=== PATIENT | female | born 1970 ===

== ENCOUNTER 2024-11-16 18:03 | Inpatient (IN) | payer MEDICAID, SELFPAY ==
--- NOTE | 2024-11-16 18:18 | PC.NURSE ---
Patient was admitted to M3 from [facility] at 18:33 on a 12b. Upon admission, patient's vitals were completed (97%, 87HR, 169/99, R17, 98.2) and patient's skin check was completed and unremarkable. Patient was oriented to the unit, given a bag of toiletries and admission assessment has been passed on to next shift.
[2024-11-16 18:54] VITALS: BMI 34.9
[2024-11-16 18:55] VITALS: BP 169/99; PULSE 87; RESP 17; TEMP 36.8; O2SAT 97
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
[2024-11-17 08:19] VITALS: BP 121/69; PULSE 75; RESP 16; TEMP 36.5; O2SAT 95
[2024-11-17 08:37] LABS: Estimated Average Glucose 100 mg/dL; Hemoglobin A1C 107.4116 umol/L; Hemoglobin A1c % 5.1 % (<6.0); Total Hemoglobin (HGBA1C) 3342.6556 umol/L
[2024-11-17 08:51] LABS: Cholesterol 163 mg/dL (<200); HDL Cholesterol 61 mg/dL (>40); LDL Cholesterol Calculated 91 mg/dL (<100); Magnesium 2.1 mg/dL (1.6-2.6); Triglycerides 58 mg/dL (<150)
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
[2024-11-17 09:08] LABS: Free T4 (Free Thyroxine) 1.15 ng/dL (0.71-1.85); Thyroid Stimulating Hormone 0.81 uIU/mL (0.32-4.0)
[2024-11-17 09:23] LABS: Folate 8.1 ng/mL (> or = 4.0); Vitamin B12 475 pg/mL (200-900)
--- NOTE | 2024-11-17 10:30 | HO.PM.IMCN ---
History of Present Illness Data of Consult Service Date: 11/17/24 Primary Care Provider: Nonstaff Physician SHAYNA Reason for consult: Medical consult 54-year-old female with past medical history of hypertension and AFib and anemia. She is admitted here from [facility] to inpatient psychiatric treatment for delusions paranoid thoughts and anxiety. She reports to me that she is unhoused unclear if this is accurate. Notably she has had bilateral leg swelling and pain. Her workup revealed a normal creatinine, normal troponins, EKG with normal sinus rhythm, a negative urinalysis, a negative chest x-ray. She was ruled out for ACS and renal failure. Her BNP was 154, no pulmonary edema on chest x-ray. She reports a history of AFib and she was on medications for approximately 1 month and this resolved. She reports that she only takes diltiazem for her blood pressure. Her blood pressure is stable today. Was elevated on admission. She walks with a limp due to past surgeries on her left hip starting as a child. On exam she has bilateral swelling in her legs 1 to 2+. She reports that they are significantly improved. She was doing a lot of walking. She has a history of gastric bypass surgery. On exam she became tearful. She denies any chest pain, shortness of breath, dizziness, lightheadedness or any other concerning symptoms. She denies any medical concerns Review of Systems Review of Systems: Denies any shortness of breath, chest pain, dizziness, lightheadedness, abdominal pain or discomfort, nausea vomiting or diarrhea PMFSH Social History Household Members: None Housing: Homeless Do you presently have visiting nurse or other home services: No Patient Tobacco Use Status: Former Tobacco user Tobacco use type: Cigarette Smoked in Last 30 Days: No e-Cigarette/Vaping Use: Never Used Patient Interested in Nicotine Replacement: Yes Patient Given Instructions on How to Stop Smoking: No Second Hand Smoke Exposure: No Currently Displaying Signs/Symptoms of Drug Intoxication Withdrawal: No Do you feel safe in your current relationship?: No Current Relationship Advance Directives: No Advance Directives Information Provided: No Do you have thoughts of harming others: None Do you have a plan to hurt others: No Plan Recently lost weight without trying: Unsure Eating poorly because of decreased appetite: No Nutrition Risks: No Nutritional Risk Patient : No : No Poor oral hygiene: No service: No Sexual orientation: Straight/Heterosexual Meds Allergies Allergy/AdvReac Type Severity Reaction Status Date / Time NSAIDS (Non-Steroidal Allergy Unknown Unknown Verified 11/16/24 17:05 Anti-Inflamma oxycodone Allergy Unknown Unknown Verified 11/16/24 17:05 Active Medications: Current Medications Acetaminophen (Acetaminophen 325 Mg Tablet) 650 mg PO Q6H PRN PRN Reason: Headache/Pain, Scale 1-10 Al Hydroxide/Mg Hydroxide (Magnesium Hydrox/Alum Hydrox 30 Ml Oral.Susp) 30 ml PO Q6H PRN PRN Reason: Heartburn/Nausea Hydroxyzine HCl (Hydroxyzine Hcl 25 Mg Tablet) 25 mg PO Q6H PRN PRN Reason: mild anxiety Magnesium Hydroxide (Milk Of Magnesia 30 Ml Oral.Susp) 30 ml PO DAILY PRN PRN Reason: Constipation Nicotine Polacrilex (Nicotine Polacrilex 2 Mg Gum) 4 mg BUCCAL Q2H PRN PRN Reason: Nicotine Cravings Trazodone HCl (Trazodone Hcl 50 Mg Tablet) 50 mg PO BEDTIME MRX1 PRN PRN Reason: Insomnia Home Medications ?Medication ?Instructions ?Recorded ?Confirmed ?Last Taken ?Type diltiazem HCl 240 mg 240 mg PO DAILY 11/17/24 11/17/24 Unknown History capsule,extended release 24 hr metoprolol succinate 25 mg 25 mg PO DAILY 11/17/24 11/17/24 Unknown History tablet,extended release 24 hr (Toprol XL) quetiapine 25 mg tablet 25 mg PO BEDTIME 11/17/24 11/17/24 Unknown History Physical Exam Vital Signs and Narrative: Vital Signs: Last Vital Signs Temp 97.7 F 11/17/24 08:19 Pulse 75 11/17/24 08:19 Resp 16 11/17/24 08:19 BP 121/69 11/17/24 08:19 Pulse Ox 95 11/17/24 08:19 O2 Del Method Room Air 11/17/24 08:19 BMI result Body Mass Index 34.9 Alert and oriented X3, able to give good history. Neuro: CN II-X11 intact, no deficits, visual acuity intact EYES: PERRLA, EOM intact ENT: hearing intact, uvula midline, lips moist Cardiac: S1 S2 RRR, no murmur, no JVD, no edema in Lower ext Pulmonary: lungs clear to auscultation, No increased WOB. Abdominal: BS active in all 4 quadrants, no guarding MSK: Strength 5/5 upper and lower extremities : Deferred Extremities: 1-2+ edema in lower extremities, PT and DP pulses palpable +2 Psych: mood stable, judgment and insight good, weepy Skin: Warm and dry, Intact Results Labs Labs: Laboratory Results - last 24 hr 11/17/24 07:54 Estimat Average Glucose 100 Hemoglobin A1c % 5.1 Magnesium 2.1 Triglycerides 58 Cholesterol 163 LDL Cholesterol, Calc 91 HDL Cholesterol 61 Vitamin B12 475 Folate 8.1 TSH 0.81 Free T4 1.15 Assessment and Plan (1) HTN (hypertension): Status: Acute Plan Delusion, paranoid thoughts/anxiety Treatment per psychiatric team Hypertension Continue diltiazem 240 daily. History of AFib Previously received Toprol- No longer taking This has subsequently been DC. EKG demonstrated sinus rhythm ACS ruled out, BNP within normal limits. Edema Encouraged leg elevation We will treat with 3 days of Lasix 20 mg ALLISON stockings We will check BMP on Wednesday. Thank you for allowing me to participate in the care of this patient. Will follow as needed. Please reconsult of any acute complaints or issues arise
[2024-11-17] MEDS: Acetaminophen 325 MG TABLET 650 MG PO ×2 (11:04→21:19)
[2024-11-17 13:23] VITALS: BP 128/73
[2024-11-17] MEDS: Furosemide 20 MG TABLET PO (13:23)
--- NOTE | 2024-11-17 15:03 | MHC.CLN ---
NUTRITION CONSULT CONSULT FOR S/P GASTRIC BYPASS SURGERY. VISITED WITH PATIENT ON THE UNIT. REPORTED THAT HAD GASTRIC BYPASS SURGERY IN 2013. NO SPECIAL DIET OR SUPPLEMENTS REQUESTED. ABLE TO MAKE OWN CHOICES FROM HOUSE MENU. NO ADDITIONAL NUTRITION INTERVENTIONS AT THIS TIME.
[2024-11-17 19:15] VITALS: BP 139/99; PULSE 85; RESP 16; TEMP 36.7; O2SAT 98
[2024-11-18 08:00] VITALS: BP 155/86; PULSE 72; RESP 16; TEMP 36.4; O2SAT 98
[2024-11-18] MEDS: dilTIAZem HCL CD 240 MG CAP.ER.DEG PO (08:43)
[2024-11-18] MEDS: Furosemide 20 MG TABLET PO (08:43)
[2024-11-18] MEDS: Acetaminophen 325 MG TABLET 650 MG PO ×2 (09:39→21:30)
--- NOTE | 2024-11-18 14:43 | P.PNPSI_ITS ---
Subjective Subjective Date of Service: 11/18/24 Reason For Visit: Delusional disorder Interim History: Social with peers. attending groups. Showered. Pt reports feeling fine today; denies any issues at this time. She reports sleeping well last night. denies SI/HI/VH/AH. Medication Compliance: Yes Side effects from medications: No Attending Groups: Yes Mental Status Exam Mental Status Exam Patient Appearance: Well Grooomed Patient Orientation: Person, Place, Time and Situation Level of Consciousness: Awake and Alert Patient Behavior: Appropriate and Cooperative Mood Description: Calm Affect Description: Calm Ability to Follow Directions: Good Speech Pattern: Clear and Appropriate Memory Description: Intact Hallucinations: None Delusions: Not Present Thought Process: Intact Thought Content: positive for Intact Diagnostics Vital Signs (24Hr): Vital Signs - 24 hr 11/17/24 19:15 11/18/24 08:00 Temperature 98.0 F 97.6 F Pulse Rate 85 72 Respiratory Rate 16 16 Blood Pressure 139/99 H 155/86 H Pulse Oximetry 98 98 Oxygen Delivery Method Room Air Room Air BMI result Body Mass Index 34.9 Labs Labs: Laboratory Results - last 48 hr 11/17/24 07:54 Estimat Average Glucose 100 Hemoglobin A1c % 5.1 Magnesium 2.1 Triglycerides 58 Cholesterol 163 LDL Cholesterol, Calc 91 HDL Cholesterol 61 Vitamin B12 475 Folate 8.1 TSH 0.81 Free T4 1.15 Medications Medications Current Medications Acetaminophen (Acetaminophen 325 Mg Tablet) 650 mg PO Q6H PRN PRN Reason: Headache/Pain, Scale 1-10 Last Admin: 11/18/24 09:39 Dose: 650 mg Al Hydroxide/Mg Hydroxide (Magnesium Hydrox/Alum Hydrox 30 Ml Oral.Susp) 30 ml PO Q6H PRN PRN Reason: Heartburn/Nausea Diltiazem HCl (Diltiazem Hcl Cd 240 Mg Cap.Er.Deg) 240 mg PO DAILY CHERYL; P rotocol Last Admin: 11/18/24 08:43 Dose: 240 mg Furosemide (Furosemide 20 Mg Tablet) 20 mg PO DAILY CHERYL; Protocol Stop: 11/20/24 12:14 Last Admin: 11/18/24 08:43 Dose: 20 mg Hydroxyzine HCl (Hydroxyzine Hcl 25 Mg Tablet) 25 mg PO Q6H PRN PRN Reason: mild anxiety Magnesium Hydroxide (Milk Of Magnesia 30 Ml Oral.Susp) 30 ml PO DAILY PRN PRN Reason: Constipation Multi-Ingred Cream/Lotion/Oil/Oint (Mineral Oil/Petrolatum,White 106 Gm Tube) 1 appl TOPICAL BID PRN; Protocol PRN Reason: Dry Skin Nicotine Polacrilex (Nicotine Polacrilex 2 Mg Gum) 4 mg BUCCAL Q2H PRN PRN Reason: Nicotine Cravings Olanzapine (Olanzapine 5 Mg Tablet) 5 mg PO BEDTIME CHERYL Last Admin: 11/17/24 21:21 Dose: Not Given Trazodone HCl (Trazodone Hcl 50 Mg Tablet) 50 mg PO BEDTIME MRX1 PRN PRN Reason: Insomnia Allergies Allergies Allergy/AdvReac Type Severity Reaction Status Date / Time NSAIDS (Non-Steroidal Allergy Unknown Unknown Verified 11/16/24 17:05 Anti-Inflamma oxycodone Allergy Unknown Unknown Verified 11/16/24 17:05 Assessment & Plan Assessment & Plan (1) HTN (hypertension): Status: Acute Code(s): I10 - Essential (primary) hypertension (2) History of gastric bypass: Status: Acute Code(s): Z98.84 - Bariatric surgery status (3) Psychotic disorder: Status: Acute Code(s): F29 - Unspecified psychosis not due to a substance or known physiological condition Plan offer anti-psychotic medication, which pt states she will refuse. otherwise continue home medications for HTN. nutrition consult for gastric bypass Hx. 12b up next . 11/18: Social with peers. attending groups. Showered. Pt reports feeling fine today; denies any issues at this time. She reports sleeping well last night. denies SI/HI/VH/AH. Continue current tx plan. Patient educated on: diagnosis and medication risk/benefits Reason for continued inpatient stay Substantial Risk for: med/psych decompensation Time Spent With Patient Time: Total time managing care of this patient today _10___ minutes.
[2024-11-18 19:05] VITALS: BP 163/88; PULSE 73; RESP 16; TEMP 36.6; O2SAT 100
[2024-11-18] MEDS: Mineral Oil/Petrolatum,White 106 GM Tube 1 APPL TOPICAL (21:30)
[2024-11-19 07:32] VITALS: BP 145/93; PULSE 66; RESP 16; TEMP 36.4; O2SAT 100
[2024-11-19] MEDS: Acetaminophen 325 MG TABLET 650 MG PO (07:56)
[2024-11-19] MEDS: Mineral Oil/Petrolatum,White 106 GM Tube 1 APPL TOPICAL ×2 (07:57→20:51)
[2024-11-19] MEDS: dilTIAZem HCL CD 240 MG CAP.ER.DEG PO (07:58)
[2024-11-19] MEDS: Furosemide 20 MG TABLET PO (07:58)
--- NOTE | 2024-11-19 09:20 | HO.PSYCHPN ---
Subjective Subjective Date of Service: 11/19/24 Reason For Visit: Delusional disorder Interim History: Social with peers. attending groups. guarded. Pt reports feeling good today; pt stated, I feel like the swelling in my legs has decreased . She reports sleeping well last night. denies SI/HI/VH/AH. Medication Compliance: Yes Side effects from medications: No Attending Groups: Yes Mental Status Exam Mental Status Exam Patient Appearance: Well Grooomed Patient Orientation: Person, Place, Time and Situation Level of Consciousness: Awake and Alert Patient Behavior: Appropriate, Guarded and Cooperative Mood Description: Calm Affect Description: Calm Ability to Follow Directions: Good Speech Pattern: Clear and Appropriate Memory Description: Intact Hallucinations: None Delusions: Not Present Thought Process: Intact Thought Content: positive for Intact Diagnostics Vital Signs (24Hr): Vital Signs - 24 hr 11/18/24 19:05 11/19/24 07:32 Temperature 97.8 F 97.5 F Pulse Rate 73 66 Respiratory Rate 16 16 Blood Pressure 163/88 H 145/93 H Pulse Oximetry 100 100 Oxygen Delivery Method Room Air Room Air BMI result Body Mass Index 34.9 Labs Labs: Laboratory Results - last 48 hr 11/17/24 07:54 Vitamin B12 475 Folate 8.1 Medications Medications Current Medications Acetaminophen (Acetaminophen 325 Mg Tablet) 650 mg PO Q6H PRN PRN Reason: Headache/Pain, Scale 1-10 Last Admin: 11/19/24 07:56 Dose: 650 mg Al Hydroxide/Mg Hydroxide (Magnesium Hydrox/Alum Hydrox 30 Ml Oral.Susp) 30 ml PO Q6H PRN PRN Reason: Heartburn/Nausea Diltiazem HCl (Diltiazem Hcl Cd 240 Mg Cap.Er.Deg) 240 mg PO DAILY CHERYL; Protocol Last Admin: 11/19/24 07:58 Dose: 240 mg Furosemide (Furosemide 20 Mg Tablet) 20 mg PO DAILY CHERYL; Protocol Stop: 11/20/24 12:14 Last Admin: 11/19/24 07:58 Dose: 20 mg Hydroxyzine HCl (Hydroxyzine Hcl 25 Mg Tablet) 25 mg PO Q6H PRN PRN Reason: mild anxiety Magnesium Hydroxide (Milk Of Magnesia 30 Ml Oral.Susp) 30 ml PO DAILY PRN PRN Reason: Constipation Multi-Ingred Cream/Lotion/Oil/Oint (Mineral Oil/Petrolatum,White 106 Gm Tube) 1 appl TOPICAL BID PRN; Protocol PRN Reason: Dry Skin Last Admin: 11/19/24 07:57 Dose: 1 appl Nicotine Polacrilex (Nicotine Polacrilex 2 Mg Gum) 4 mg BUCCAL Q2H PRN PRN Reason: Nicotine Cravings Olanzapine (Olanzapine 5 Mg Tablet) 5 mg PO BEDTIME CHERYL Last Admin: 11/18/24 21:14 Dose: Not Given Trazodone HCl (Trazodone Hcl 50 Mg Tablet) 50 mg PO BEDTIME MRX1 PRN PRN Reason: Insomnia Allergies Allergies Allergy/AdvReac Type Severity Reaction Status Date / Time NSAIDS (Non-Steroidal Allergy Unknown Unknown Verified 11/16/24 17:05 Anti-Inflamma oxycodone Allergy Unknown Unknown Verified 11/16/24 17:05 Assessment & Plan Assessment & Plan (1) HTN (hypertension): Status: Acute Code(s): I10 - Essential (primary) hypertension (2) History of gastric bypass: Status: Acute Code(s): Z98.84 - Bariatric surgery status (3) Psychotic disorder: Status: Acute Code(s): F29 - Unspecified psychosis not due to a substance or known physiological condition Plan offer anti-psychotic medication, which pt states she will refuse. otherwise continue home medications for HTN. nutrition consult for gastric bypass Hx. 12b up next . 11/18: Social with peers. attending groups. Showered. Pt reports feeling fine today; denies any issues at this time. She reports sleeping well last night. denies SI/HI/VH/AH. Continue current tx plan. 11/19: continue current tx plan. Patient educated on: diagnosis, medication risk/benefits and therapeutic strategies Reason for continued inpatient stay Substantial Risk for: med/psych decompensation Time Spent With Patient Time: Total time managing care of this patient today _20___ minutes.
[2024-11-19 20:00] VITALS: BP 162/90; PULSE 77; RESP 16; TEMP 36.4; O2SAT 100
[2024-11-19] MEDS: Hydrocortisone 1 % Cream 28.35 GM TUBE 1 APPL TOPICAL (20:51)
[2024-11-20] MEDS: Hydrocortisone 1 % Cream 28.35 GM TUBE 1 APPL TOPICAL (05:31)
[2024-11-20 08:00] VITALS: BP 173/93; PULSE 66; RESP 16; TEMP 36.3; O2SAT 100
[2024-11-20] MEDS: dilTIAZem HCL CD 240 MG CAP.ER.DEG PO (08:39)
[2024-11-20] MEDS: Furosemide 20 MG TABLET PO (08:40)
--- NOTE | 2024-11-20 08:48 | HO.PSYCHPN ---
Subjective Subjective Date of Service: 11/20/24 Reason For Visit: Delusional disorder Interim History: Pt reports feeling good today; observed sitting in sensory room, listening to music. She reports sleeping well. denies SI/HI/VH/AH. continue current tx plan. Medication Compliance: Yes Side effects from medications: No Attending Groups: Yes Mental Status Exam Mental Status Exam Patient Appearance: Well Grooomed Patient Orientation: Person, Place, Time and Situation Level of Consciousness: Awake and Alert Patient Behavior: Appropriate, Guarded and Cooperative Mood Description: Calm Affect Description: Calm Ability to Follow Directions: Good Speech Pattern: Clear and Appropriate Memory Description: Intact Hallucinations: None Delusions: Not Present Thought Process: Intact Thought Content: positive for Intact Diagnostics Vital Signs (24Hr): Vital Signs - 24 hr 11/19/24 20:00 11/20/24 08:00 Temperature 97.5 F 97.3 F Pulse Rate 77 66 Respiratory Rate 16 16 Blood Pressure 162/90 H 173/93 H Pulse Oximetry 100 100 Oxygen Delivery Method Room Air Room Air BMI result Body Mass Index 34.9 Labs 11/20/24 08:02 Medications Medications Current Medications Acetaminophen (Acetaminophen 325 Mg Tablet) 650 mg PO Q6H PRN PRN Reason: Headache/Pain, Scale 1-10 Last Admin: 11/19/24 07:56 Dose: 650 mg Al Hydroxide/Mg Hydroxide (Magnesium Hydrox/Alum Hydrox 30 Ml Oral.Susp) 30 ml PO Q6H PRN PRN Reason: Heartburn/Nausea Diltiazem HCl (Diltiazem Hcl Cd 240 Mg Cap.Er.Deg) 240 mg PO DAILY CHERYL; Protocol Last Admin: 11/20/24 08:39 Dose: 240 mg Furosemide (Furosemide 20 Mg Tablet) 20 mg PO DAILY CHERYL; Protocol Stop: 11/20/24 12:14 Last Admin: 11/20/24 08:40 Dose: 20 mg Hydrocortisone (Hydrocortisone 1 % Cream 28.35 Gm Tube) 1 appl TOPICAL BID PRN; Protocol PRN Reason: affected area Last Admin: 11/20/24 05:31 Dose: 1 appl Hydroxyzine HCl (Hydroxyzine Hcl 25 Mg Tablet) 25 mg PO Q6H PRN PRN Reason: mild anxiety Magnesium Hydroxide (Milk Of Magnesia 30 Ml Oral.Susp) 30 ml PO DAILY PRN PRN Reason: Constipation Multi-Ingred Cream/Lotion/Oil/Oint (Mineral Oil/Petrolatum,White 106 Gm Tube) 1 appl TOPICAL BID PRN; Protocol PRN Reason: Dry Skin Last Admin: 11/19/24 20:51 Dose: 1 appl Nicotine Polacrilex (Nicotine Polacrilex 2 Mg Gum) 4 mg BUCCAL Q2H PRN PRN Reason: Nicotine Cravings Olanzapine (Olanzapine 5 Mg Tablet) 5 mg PO BEDTIME CHERYL Last Admin: 11/19/24 21:12 Dose: Not Given Trazodone HCl (Trazodone Hcl 50 Mg Tablet) 50 mg PO BEDTIME MRX1 PRN PRN Reason: Insomnia Allergies Allergies Allergy/AdvReac Type Severity Reaction Status Date / Time NSAIDS (Non-Steroidal Allergy Unknown Unknown Verified 11/16/24 17:05 Anti-Inflamma oxycodone Allergy Unknown Unknown Verified 11/16/24 17:05 Assessment & Plan Assessment & Plan (1) HTN (hypertension): Status: Acute Code(s): I10 - Essential (primary) hypertension (2) History of gastric bypass: Status: Acute Code(s): Z98.84 - Bariatric surgery status (3) Psychotic disorder: Status: Acute Code(s): F29 - Unspecified psychosis not due to a substance or known physiological condition Plan offer anti-psychotic medication, which pt states she will refuse. otherwise continue home medications for HTN. nutrition consult for gastric bypass Hx. 12b up next . 11/18: Social with peers. attending groups. Showered. Pt reports feeling fine today; denies any issues at this time. She reports sleeping well last night. denies SI/HI/VH/AH. Continue current tx plan. 11/19: continue current tx plan. 11/20: continue tx plan. Patient educated on: diagnosis and medication risk/benefits Reason for continued inpatient stay Substantial Risk for: med/psych decompensation Time Spent With Patient Time: Total time managing care of this patient today _10___ minutes.
[2024-11-20 09:09] LABS: Anion Gap 14 (12-20); Blood Urea Nitrogen 18 mg/dL (9-16); Calcium 9.5 mg/dL (8.4-10.2); Carbon Dioxide 28 mmol/L (22-29); Chloride 104 mmol/L (96-108); Creatinine Clr Calc Pharmacy 84.5; Estimated Glomerular Filt Rate 59; Glucose Random 84 mg/dL (60-115); Potassium 4.4 mmol/L (3.3-5.1); Sodium 142 mmol/L (135-145)
[2024-11-20 20:00] VITALS: BP 145/90; PULSE 66; RESP 16; TEMP 37; O2SAT 100
[2024-11-20 22:50] VITALS: BP 152/94; PULSE 95; RESP 16; O2SAT 99
[2024-11-21] MEDS: Hydrocortisone 1 % Cream 28.35 GM TUBE 1 APPL TOPICAL (06:10)
[2024-11-21 07:59] VITALS: BP 153/98; PULSE 76; TEMP 36.3; O2SAT 100
[2024-11-21] MEDS: dilTIAZem HCL CD 240 MG CAP.ER.DEG PO (08:07)
[2024-11-21] MEDS: Mineral Oil/Petrolatum,White 106 GM Tube 1 APPL TOPICAL (09:02)
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
[2024-11-21 20:00] VITALS: BP 140/73; PULSE 70; RESP 16; TEMP 36.6; O2SAT 100
[2024-11-22 07:10] VITALS: BP 139/86; PULSE 67; RESP 14; TEMP 36.3; O2SAT 100
[2024-11-22 08:19] VITALS: BP 139/86; PULSE 67
[2024-11-22] MEDS: dilTIAZem HCL CD 240 MG CAP.ER.DEG PO (08:19)
== END 2024-11-22 10:26 | disposition home or self-care (01) | DRG 751 ==
PROVIDERS: Clinical Nurse Specialist Psychiatric/Mental Health, Adult; Nurse Practitioner Family; Admitting Provider Psychiatry & Neurology Psychiatry; Visit Provider Psychiatry & Neurology Psychiatry
DX: F29 Unspecified psychosis not due to a substance or known physiological condition (principal); I10 Essential (primary) hypertension; I48.91 Unspecified atrial fibrillation; Z98.84 Bariatric surgery status; Z79.899 Other long term (current) drug therapy
CPT/HCPCS: 36415; 80048; 80061; 82607; 82746; 83036; 83735; 84439; 84443

== ENCOUNTER → 2024-11-16 18:03 | Outpatient (BNV) | payer SELFPAY | PROVIDERS: Admitting Provider Psychiatry & Neurology Psychiatry; Visit Provider Nurse Practitioner Family | DX: Z00.8 Encounter for other general examination (principal) | CPT/HCPCS: 99429 ==

== ENCOUNTER → 2024-11-16 18:03 | Outpatient (BNV) | payer OTHER, SELFPAY | PROVIDERS: Admitting Provider Psychiatry & Neurology Psychiatry; Visit Provider Psychiatry & Neurology Psychiatry | DX: F29 Unspecified psychosis not due to a substance or known physiological condition (principal); I10 Essential (primary) hypertension; Z98.84 Bariatric surgery status | CPT/HCPCS: 99231; 99232; 99233 ==